=== PATIENT | female | born 1985 | race Caucasian/White ===

== ENCOUNTER 2019-04-08 14:59 | Emergency (ER) | payer BC, OTHER ==
[2019-04-08 17:17] VITALS: BP 0/0
--- NOTE | 2019-04-11 05:30 | ED ---
Upper Extremity Pain - HPI Summary HPI Summary: This patient is a 33-year-old otherwise healthy female who presents to the with right shoulder and arm pain. She states she was at work when another individual pulled out her arm. Pain was severe at the time, and is now moderate in severity. She rates this a 7/10 currently. She has not taken ibuprofen or Tylenol for relief. Denies any limitations with range of motion. Denies other pain or concerns. Endorses pain most notably to the right anterior shoulder as well as to the right lateral portion of the elbow. - History of Current Complaint Chief Complaint: EDExtremityUpper Stated Complaint: LT ARM AND SHOULDER INJ PER PT Time Seen by Provider: 04/08/19 15:05 Hx Obtained From: Patient Onset/Duration: Started Hours Ago Timing: Constant Severity Initially: Moderate Severity Currently: Moderate Pain Location: Arm Character: Aching Aggravating Factor(s): Movement, Lifting, Flexion, Extension, Internal/External Rotation Alleviating Factor(s): Nothing Associated Signs & Symptoms: Positive: Negative Related History: Dominant Hand Right - Risk Factors Non-Orthopedic Risk Factor: Negative DVT Risk Factors: Negative Septic Arthritis Risk Factor: Negative - Allergies/Home Medications Allergies/Adverse Reactions: Allergies Allergy/AdvReac Type Severity Reaction Status Date / Time Sulfa (Sulfonamide AdvReac Rash Verified 04/08/19 15:03 Antibiotics) Home Medications: Home Medications Cyclobenzaprine TAB* [Flexeril 10 MG TAB*] 10 mg PO BID PRN 04/08/19 [History Confirmed 04/08/19] FLUoxetine CAP* [PROzac CAP*] 20 mg PO DAILY 04/08/19 [History Confirmed ] Levothyroxine TAB* [Synthroid TAB*] 100 mcg PO DAILY 04/08/19 [History Confirmed 04/08/19] Lisdexamfetamine Dimesylate [Vyvanse] 30 mg PO DAILY 04/08/19 [History Confirmed 04/08/19] Zolpidem TAB* [Ambien TAB*] 10 mg PO BEDTIME PRN 04/08/19 [History Confirmed 07/15] clonazePAM TAB(*) [KlonoPIN TAB(*)] 0.5 mg PO TID PRN 04/08/19 [History Confirmed 04/08/19] PMH/Surg Hx/FS Hx/Imm Hx Previously Healthy: Yes - Immunization History Hx Pertussis Vaccination: No Immunizations Up to Date: Yes Infectious Disease History: No Infectious Disease History: Denies: Traveled Outside the [place] in Last 30 Days - Social History Occupation: Unemployed Lives: With Family Alcohol Use: None Hx Substance Use: No Substance Use Type: Reports: None Hx Tobacco Use: No Smoking Status (MU): Light Every Day Tobacco Smoker Review of Systems Constitutional: Negative Negative: Fever, Chills, Fatigue, Skin Diaphoresis Negative: Palpitations, Chest Pain Negative: Shortness Of Breath, Cough Genitourinary: Negative Positive: no symptoms reported, see HPI Negative: Arthralgia, Myalgia Skin: Negative All Other Systems Reviewed And Are Negative: Yes Physical Exam Triage Information Reviewed: Yes Vital Signs On Initial Exam: Initial Vitals Temp Pulse Resp BP Pulse Ox 97.9 F 89 16 129/84 100 04/08/19 15:03 04/08/19 15:03 04/08/19 15:03 04/08/19 15:03 04/08/19 15:03 Vital Signs Reviewed: Yes Appearance: Positive: Well-Appearing, Well-Nourished Skin: Positive: Warm, Skin Color Reflects Adequate Perfusion Head/Face: Positive: Normal Head/Face Inspection Eyes: Positive: EOMI, ROBERTO, Conjunctiva Clear Neck: Positive: Supple, No Lymphadenopathy Respiratory/Lung Sounds: Positive: Clear to Auscultation, Breath Sounds Present Cardiovascular: Positive: RRR, Pulses are Symmetrical in both Upper and Lower Extremities Musculoskeletal: Positive: Normal, Strength/ROM Intact Neurological: Positive: Sensory/Motor Intact, Alert, Oriented to Person Place, Time, Speech Normal Psychiatric: Positive: Affect/Mood Appropriate Diagnostics - Vital Signs Vital Signs Temp Pulse Resp BP Pulse Ox 04/08/19 16:40 0 F 0 0 0/0 0 04/08/19 15:03 97.9 F 89 16 129/84 100 - Laboratory Lab Statement: Any lab studies that have been ordered have been reviewed, and results considered in the medical decision making process. Course/Dx - Course Course Of Treatment: During the course of treatment, the patient is evaluated for right shoulder and elbow pain. She states she was at work when another individual pulled her arm. She denies any range of motion issues. Denies any numbness or tingling. On physical examination, patient appears well, no limitations with range of motion, flexion, abduction, abduction all intact. Extension with some tenderness to the right anterior portion of the shoulder. No nodes or tingling noted. Could Refill. Pulses +2 intact bilaterally. Discussed treatment options with the patient. She states she'll follow-up with an orthopedic physician if symptoms worsen. She is given a note for work and is diagnosed with muscle strain. - Diagnoses Differential Diagnosis/HQI/PQRI: Positive: Strain, Sprain Provider Diagnoses: Muscle strain Discharge ED - Sign-Out/Discharge Documenting (check all that apply): Patient Departure Patient Received Moderate/Deep Sedation with Procedure: No - Discharge Plan Condition: Stable Disposition: HOME Patient Education Materials: Cervical Strain (ED) Forms: *Work Release Referrals: Miguel Montague MD [Medical Doctor] - Lul Oscar MD [Primary Care Provider] - Additional Instructions: Ibuprofen 600mg three times daily Moist heat to the area as much as possible Try to avoid the use of this arm until the area begins to improve At this time, it is likely aggravated and strained. Will likely improved with medication, heat and rest If symptoms worsen, please see our orthopedic physician - Billing Disposition and Condition Condition: STABLE Disposition: Home
== END 2019-04-08 16:40 | disposition home or self-care (01) ==
LOC: ED 14:59
DX: S46.911A Strain of unspecified muscle, fascia and tendon at shoulder and upper arm level, right arm, initial encounter (principal); Z72.0 Tobacco use; Z88.2 Allergy status to sulfonamides; X50.0XXA Overexertion from strenuous movement or load, initial encounter; X50.9XXA Other and unspecified overexertion or strenuous movements or postures, initial encounter; Y92.9 Unspecified place or not applicable; Y99.0 Civilian activity done for income or pay; Z79.899 Other long term (current) drug therapy
CPT/HCPCS: 99282